=== PATIENT | female | born 1930 | race Caucasian/White ===

== ENCOUNTER 2019-02-09 16:49 | Emergency (ER) | payer MEDICARE, MEDICAID ==
[~2019-02-09] VITALS: Ht 162.6 cm; Wt 89.0 kg
[~2019-02-09 16:49] MED LIST: ASPI-1393 PO; [UNRECOGNIZED DRUG - OTHER] TOP
[2019-02-09] MEDS ORDERED: CLINDAMYCIN HCL 150MG CAPSULE PO ONE (21:15)
[2019-02-09 21:43] VITALS: BP 142/61
== END 2019-02-09 21:43 | disposition home or self-care (01) ==
LOC: ER 16:49
DX: L03.211 Cellulitis of face (principal)
CPT/HCPCS: 99282

== ENCOUNTER 2020-06-09 16:34 | Inpatient (IN) | payer MEDICARE, MEDICAID ==
[~2020-06-09] VITALS: Ht 162.6 cm; Wt 86.2 kg
[~2020-06-09 16:34] MED LIST changes: -ASPI-1393 PO; +ASPI-1497 PO
[2020-06-09] MEDS ORDERED: ONDANSETRON HCL 4MG/2ML INJ IV STA (18:09)
[2020-06-09] MEDS ORDERED: MORPHINE SULFATE 4 MG/ML CPJ (NOT FOR IM USE) IV STA (18:09)
[2020-06-09] MEDS ORDERED: SODIUM CHLORIDE 0.9% 1,000 ML IV ONE (18:15)
[2020-06-09 18:49] LABS: HEMATOCRIT. 26.3 % (36.0-48.0); HEMOGLOBIN. 8.2 g/dL (12.0-16.0); MEAN CORPUSCULAR HEMOGLOBIN 29.3 pg (28.0-32.0); MEAN CORPUSCULAR VOLUME 94.3 fL (81.0-99.0); MEAN PLATELET VOLUME 9.9 fl (7.4-10.4); PLATELET 240 x1000/uL (130-400); RED BLOOD CELL COUNT 2.79 mill/uL (4.2-5.4); RED CELL DISTRIBUTION WIDTH 27.1 % (11.6-14.6)
[2020-06-09 18:55] LABS: CHLORIDE 108 mEq/L (98-107)
[2020-06-09 19:09] LABS: PROTHROMBIN TIME 11.2 sec (9.6-11.0)
[2020-06-09 19:39] LABS: PLATELET ESTIMATE NORMAL
[2020-06-09] MEDS ORDERED: AZITHROMYCIN 500 MG in DEXT 5% WATER 250 ML IV ONE (19:45)
[2020-06-09] MEDS ORDERED: CEFTRIAXONE 1 G PREMIX 50 ML IV ONE (19:45)
[2020-06-09 22:19] LABS: CLARITY URINE TURBID (CLEAR); COLOR URINE ORANGE (YELLOW); KETONES URINE TRACE (NEGATIVE); LEUKOCYTE ESTERASE URINE NEGATIVE (NEGATIVE); NITRITE URINE NEGATIVE (NEGATIVE); OCCULT BLOOD URINE NEGATIVE (NEGATIVE); PROTEIN URINE 1+ (NEGATIVE); SPECIFIC GRAVITY URINE 1.024 (1.005-1.030)
[2020-06-10 04:00] VITALS: BP 134/51
[2020-06-10 04:39] VITALS: BP 153/51
[2020-06-10 08:00] VITALS: BP 149/49
[2020-06-10] MEDS ORDERED: MAGNESIUM/ALUMINUM HYDROXIDE/SIMETHICONE 30ML UDC PO PRN (10:45)
[2020-06-10] MEDS: SODIUM CHLORIDE 0.9% 1,000 ML IV SCH (10:45)
[2020-06-10] MEDS ORDERED: ACETAMINOPHEN 325MG TABLET PO PRN (10:45)
[2020-06-10] MEDS ORDERED: ONDANSETRON HCL 4MG/2ML INJ IV PRN (10:45)
[2020-06-10] MEDS ORDERED: CLONIDINE 0.1MG TABLET PO PRN (10:45)
[2020-06-10] MEDS ORDERED: DIPHENHYDRAMINE 50MG/ML VIAL IV PRN (10:45)
[2020-06-10 16:00] VITALS: BP 89/48
[2020-06-10 20:00] VITALS: BP 105/28
[2020-06-10] MEDS ORDERED: HYDROCODONE/ACETAMINOPHEN 10/325MG TABLET PO PRN (22:30)
[2020-06-11] VITALS (7 sets, daily range): BP systolic 101–139; BP diastolic 32–70
[2020-06-11] MEDS: CARBIDOPA/LEVODOPA 25/100MG TABLET PO SCH ×3 (00:18→18:22)
[2020-06-11] MEDS: SODIUM CHLORIDE 0.9% 1,000 ML IV SCH (07:00)
[2020-06-12] VITALS (7 sets, daily range): BP systolic 114–140; BP diastolic 36–70
[2020-06-12] MEDS: SODIUM CHLORIDE 0.9% 1,000 ML IV SCH (02:45)
[2020-06-12] MEDS ORDERED: VANCOMYCIN HCL 1 GM/VIAL ONE (06:29)
[2020-06-12] MEDS ORDERED: BUPIVACAINE HCL/PF 0.5% (5MG/ML) 10ML ONE (06:29)
[2020-06-12] MEDS ORDERED: HYDROMORPHONE HCL/PF 2MG/ML (OR) ONE (07:48)
[2020-06-12] MEDS ORDERED: DEXAMETHASONE 4MG/ML 1ML VIAL ONE (07:49)
[2020-06-12] MEDS ORDERED: CEFAZOLIN SODIUM 1000MG/VIAL ONE (07:49)
[2020-06-12] MEDS ORDERED: GLYCOPYRROLATE 0.2 MG/ML 2ML VIAL ONE (08:03)
[2020-06-12] MEDS ORDERED: KETOROLAC 30MG/ML VIAL ONE (08:10)
[2020-06-12] MEDS ORDERED: HYDROMORPHONE HCL/PF 2MG/ML CPJ IV PRN (09:00)
[2020-06-12] MEDS ORDERED: LABETALOL 5MG/ML SYR 20 MG/4 ML SYRINGE IV PRN (09:00)
[2020-06-12] MEDS ORDERED: MEPERIDINE HCL/PF 25MG/ML CPJ IV PRN (09:00)
[2020-06-12] MEDS ORDERED: ENOXAPARIN 40MG/0.4ML SYR SUBCUT SCH (09:00)
[2020-06-12] MEDS ORDERED: ONDANSETRON HCL 4MG/2ML INJ IV PRN (09:00)
[2020-06-12] MEDS: CARBIDOPA/LEVODOPA 25/100MG TABLET PO SCH ×2 (10:16→17:02)
[2020-06-12] MEDS ORDERED: CEFAZOLIN SODIUM 1000MG/VIAL IV SCH (14:00)
[2020-06-12] MEDS: CEFAZOLIN 1000MG PREMIX 50 ML IV SCH ×2 (17:02→23:48)
[2020-06-12] MEDS: ENOXAPARIN 40MG/0.4ML SYR SUBCUT SCH (20:26)
[2020-06-13] VITALS: BP 122/46
[2020-06-13 04:00] VITALS: BP 119/44
[2020-06-13] MEDS: SODIUM CHLORIDE 0.9% 1,000 ML IV SCH ×2 (06:20→18:31)
[2020-06-13 08:00] VITALS: BP 135/48
[2020-06-13] MEDS: CARBIDOPA/LEVODOPA 25/100MG TABLET PO SCH ×2 (09:30→16:33)
[2020-06-13] MEDS: CEFAZOLIN 1000MG PREMIX 50 ML IV SCH ×2 (09:31→16:33)
[2020-06-13 12:00] VITALS: BP 156/43
[2020-06-13 16:00] VITALS: BP 137/64
[2020-06-13 20:00] VITALS: BP 147/53
[2020-06-13] MEDS: ENOXAPARIN 40MG/0.4ML SYR SUBCUT SCH (21:37)
[2020-06-14] VITALS (7 sets, daily range): BP systolic 110–148; BP diastolic 30–77
[2020-06-14] MEDS: CEFAZOLIN 1000MG PREMIX 50 ML IV SCH ×2 (00:34→08:33)
[2020-06-14] MEDS: CARBIDOPA/LEVODOPA 25/100MG TABLET PO SCH ×2 (08:33→17:03)
[2020-06-14] MEDS: HYDROMORPHONE HCL/PF 2MG/ML CPJ IV PRN (11:39)
[2020-06-14] MEDS: SODIUM CHLORIDE 0.9% 1,000 ML IV SCH (17:03)
[2020-06-14] MEDS: ENOXAPARIN 40MG/0.4ML SYR SUBCUT SCH (20:48)
[2020-06-15] VITALS (8 sets, daily range): BP systolic 110–141; BP diastolic 31–89
[2020-06-15] MEDS: DILTIAZEM HCL 30MG TABLET PO SCH ×4 (01:34→17:09)
[2020-06-15] MEDS: SODIUM CHLORIDE 0.9% 1,000 ML IV SCH (11:40)
[2020-06-15] MEDS: HYDROMORPHONE HCL/PF 2MG/ML CPJ IV PRN (11:40)
[2020-06-15] MEDS: CARBIDOPA/LEVODOPA 25/100MG TABLET PO SCH ×2 (11:41→17:09)
[2020-06-15 15:30] LABS: MEAN CORPUSCULAR HEMOGLOBIN 30.6 pg (28.0-32.0); MEAN CORPUSCULAR VOLUME 95.5 fL (81.0-99.0); MEAN PLATELET VOLUME 8.6 fl (7.4-10.4); PLATELET 189 x1000/uL (130-400); RED BLOOD CELL COUNT 2.07 mill/uL (4.2-5.4); RED CELL DISTRIBUTION WIDTH 24.5 % (11.6-14.6)
[2020-06-15 16:01] LABS: HEMATOCRIT. 19.8 % (36.0-48.0); HEMOGLOBIN. 6.3 g/dL (12.0-16.0)
[2020-06-15 16:05] LABS: CHLORIDE 111 mEq/L (98-107)
[2020-06-15 16:10] LABS: PHOSPHORUS 2.9 mg/dL (2.5-4.9)
[2020-06-15 16:18] LABS: TOTAL IRON BINDING CAPACITY 161 ug/dL (250-450)
[2020-06-15 17:27] LABS: NUCLEATED RED BLOOD CELLS 2 /100 WBC
[2020-06-15 17:28] LABS: PLATELET ESTIMATE NORMAL
[2020-06-15] MEDS: ENOXAPARIN 40MG/0.4ML SYR SUBCUT SCH (20:22)
[2020-06-16] VITALS (8 sets, daily range): BP systolic 122–160; BP diastolic 35–48
[2020-06-16] MEDS: ACETAMINOPHEN 325MG TABLET PO PRN ×2 (00:16→23:49)
[2020-06-16] MEDS: DILTIAZEM HCL 30MG TABLET PO SCH ×5 (05:55→23:48)
[2020-06-16] MEDS: SODIUM CHLORIDE 0.9% 1,000 ML IV SCH (05:57)
[2020-06-16 07:06] LABS: CHLORIDE 111 mEq/L (98-107)
[2020-06-16 08:27] LABS: HEMATOCRIT 23.6 % (36.0-48.0); HEMOGLOBIN 7.6 g/dL (12.0-16.0); MEAN CORPUSCULAR HEMOGLOBIN 30.6 pg (28.0-32.0); MEAN CORPUSCULAR VOLUME 95.2 fL (81.0-99.0); PLATELET 196 x1000/uL (130-400); RED BLOOD CELL COUNT 2.48 mill/uL (4.2-5.4); RED CELL DISTRIBUTION WIDTH 22.4 % (11.6-14.6)
[2020-06-16] MEDS: FOLIC ACID 1MG TABLET PO SCH (09:57)
[2020-06-16] MEDS: CYANOCOBALAMIN 1000MCG/ML VIAL IM SCH (09:57)
[2020-06-16] MEDS: CARBIDOPA/LEVODOPA 25/100MG TABLET PO SCH ×2 (09:58→17:06)
[2020-06-16] MEDS: ENOXAPARIN 40MG/0.4ML SYR SUBCUT SCH (20:45)
[2020-06-17] VITALS (7 sets, daily range): BP systolic 98–169; BP diastolic 40–80
[2020-06-17] MEDS: DILTIAZEM HCL 30MG TABLET PO SCH ×3 (06:14→16:00)
[2020-06-17] MEDS: ACETAMINOPHEN 325MG TABLET PO PRN (06:51)
[2020-06-17] MEDS: CYANOCOBALAMIN 1000MCG/ML VIAL IM SCH (08:32)
[2020-06-17] MEDS: CARBIDOPA/LEVODOPA 25/100MG TABLET PO SCH ×2 (08:32→16:01)
[2020-06-17] MEDS: FOLIC ACID 1MG TABLET PO SCH (08:32)
[2020-06-17] MEDS: HYDROCODONE/ACETAMINOPHEN 5/325MG TABLET PO PRN ×2 (11:45→16:00)
[2020-06-17] MEDS: ENOXAPARIN 40MG/0.4ML SYR SUBCUT SCH (20:30)
[2020-06-25 17:06] LABS: 25-HYDROXY VITAMIN D3 12 ng/mL (.)
== END 2020-06-17 22:15 | DRG 480 ==
LOC: ER 16:34 → 7WST 20:46 → EDBEDREQ 20:52 → ENRESERV 06-10 01:21 → CANBEDREQ 06-10 19:56 → 8WST 06-11 10:21
PROVIDERS: ADMIT Internal Medicine; ATTEND Internal Medicine
PROC: 30233N1 Transfusion of Nonautologous Red Blood Cells into Peripheral Vein, Percutaneous Approach (ICD-10-PCS; 2020-06-11)
PROC: 0QS636Z Reposition Right Upper Femur with Intramedullary Internal Fixation Device, Percutaneous Approach (ICD-10-PCS; principal; 2020-06-12)
DX: S72.141A Displaced intertrochanteric fracture of right femur, initial encounter for closed fracture (principal); G93.41 Metabolic encephalopathy; I47.1 Supraventricular tachycardia; I50.32 Chronic diastolic (congestive) heart failure; D63.8 Anemia in other chronic diseases classified elsewhere; M16.10 Unilateral primary osteoarthritis, unspecified hip; G20 Parkinson's disease; E53.8 Deficiency of other specified B group vitamins; E11.9 Type 2 diabetes mellitus without complications; I11.0 Hypertensive heart disease with heart failure; M16.0 Bilateral primary osteoarthritis of hip; F02.80 Dementia in other diseases classified elsewhere, unspecified severity, without behavioral disturbance, psychotic disturbance, mood disturbance, and anxiety; F31.9 Bipolar disorder, unspecified; R53.81 Other malaise; F09 Unspecified mental disorder due to known physiological condition; D72.829 Elevated white blood cell count, unspecified; W18.30XA Fall on same level, unspecified, initial encounter; Z90.710 Acquired absence of both cervix and uterus; Y93.89 Activity, other specified; Y92.89 Other specified places as the place of occurrence of the external cause; Y99.8 Other external cause status; Z85.42 Personal history of malignant neoplasm of other parts of uterus; Z79.82 Long term (current) use of aspirin; Z20.822 Contact with and (suspected) exposure to COVID-19
CPT/HCPCS: 36415; 71045; 73130; 73502; 73560; 76000; 80048; 80053; 81003; 82140; 82306; 82607; 82728; 82746; 82962; 83540; 83550; 83605; 83735; 84100; 84443; 84484; 85025; 85027; 86850; 86900; 86920; 87426; 92523; 92610; 93005; 93306; 93970; 97110; 97116; 97162; 97166; 97530; 97535; 99291; C1713; C1893; J0456; J0690; J0696; J1100; J1170; J1200; J1650; J1885; J2270; J2405; J3370; J3420; J3490; J7030; J7040; J7060; P9016; U0003